=== PATIENT | male | born 1960 | race Two or more races ===

== ENCOUNTER 2017-04-20 12:20 | Emergency (ER) | payer MEDICAID, SELFPAY ==
[~2017-04-20] VITALS: Ht 167.6 cm; Wt 89.4 kg
[~2017-04-20 12:20] MED LIST: LEVAQUIN500 MG ORAL; PEPCID40 MG PO
[2017-04-20] MEDS ORDERED: NKM (12:31)
[2017-04-20 12:32] VITALS: BP 146/85
[2017-04-20 13:16] LABS: BASOPHILS % (AUTO) 1.4 % (0.0-2.0); EOSINOPHILS % (AUTO) 0.2 % (0.0-3.0); HEMATOCRIT 47.8 % (42.0-52.0); HEMOGLOBIN 16.3 G/DL (14.2-18.0); LYMPHOCYTES % (AUTO) 20.4 % (20.0-45.0); MEAN CORPUSCULAR VOLUME 92 FL (80-99); MONOCYTES % (AUTO) 3.9 % (1.0-10.0); NEUTROPHILS % (AUTO) 74.1 % (45.0-75.0); PLATELET COUNT 233 K/UL (150-450); RED CELL DISTRIBUTION WIDTH 10.5 % (11.6-14.8); WHITE BLOOD COUNT 7.4 K/UL (4.8-10.8)
[2017-04-20 13:19] LABS: ALANINE AMINOTRANSFERASE 33 U/L (12-78); ALBUMIN/GLOBULIN RATIO 1.1 (1.0-2.7); ALKALINE PHOSPHATASE 103 U/L (46-116); ANION GAP 20 mmol/L (5-15); ASPARTATE AMINO TRANSFERASE 9 U/L (15-37); BILIRUBIN,TOTAL 0.6 MG/DL (0.2-1.0); BLOOD UREA NITROGEN 18 mg/dL (7-18); CARBON DIOXIDE 16 MMOL/L (21-32); CHLORIDE 96 MMOL/L (98-107); CREATININE 1.5 MG/DL (0.55-1.30); POTASSIUM 4.1 MMOL/L (3.5-5.1); SODIUM 132 MMOL/L (136-145)
--- NOTE | 2017-04-20 14:24 | Emergency Room Report ---
History of Present Illness General Chief Complaint: Generalized Weakness Source: Patient (TRISTIAN ASHBY M.D.) Present Illness HPI 56-year-old male presents ED complaining of feeling weak x2 weeks. States he has a dry mouth. States he is urinating a lot. Accu-Chek greater than 400. Patient states he was unaware he is a diabetic. Denies any fevers or chills. Denies nausea or vomiting. Denies chest pain or shortness of breath. No other aggravating relieving factors. Denies any other associated symptoms (TRISTIAN ASHBY M.D.) Allergies: Coded Allergies: No Known Allergies (Unverified , 09/13/13) Patient History Past Medical History: none Past Surgical History: none Pertinent Family History: none Social History: Denies: smoking, alcohol use, drug use Immunizations: UTD Reviewed Nursing Documentation: PMH: Agreed, PSxH: Agreed (TRISTIAN ASHBY M.D.) Nursing Documentation-PMH Past Medical History: No History, Except For Hx Hypertension: Yes (TRISTIAN ASHBY M.D.) Review of Systems All Other Systems: negative except mentioned in HPI (TRISTIAN ASHBY M.D.) Physical Exam Vital Signs Date Time Temp Pulse Resp B/P (MAP) Pulse Ox O2 Delivery O2 Flow Rate FiO2 04/20/17 12:22 97.9 99 18 180/104 96 Room Air Sp02 EP Interpretation: reviewed, normal General Appearance: no apparent distress, alert, GCS 15, non-toxic Head: normocephalic, atraumatic Eyes: bilateral eye normal inspection, bilateral eye PERRL ENT: hearing grossly normal, normal pharynx, no angioedema, normal voice Neck: full range of motion, supple/symm/no masses Respiratory: chest non-tender, lungs clear, normal breath sounds, speaking full sentences Cardiovascular #1: regular rate, rhythm, no edema Cardiovascular #2: 2+ carotid (R), 2+ carotid (L), 2+ radial (R), 2+ radial (L) , 2+ dorsalis pedis (R), 2+ dorsalis pedis (L) Gastrointestinal: normal bowel sounds, non tender, soft, non-distended, no guarding, no rebound Rectal: deferred Genitourinary: normal inspection, no CVA tenderness Musculoskeletal: back normal, gait/station normal, normal range of motion, non- tender Neurologic: alert, oriented x3, responsive, motor strength/tone normal, sensory intact, speech normal Psychiatric: judgement/insight normal, memory normal, mood/affect normal, no suicidal/homicidal ideation Reflexes: 3+ bicep (R), 3+ bicep (L), 3+ tricep (R), 3+ tricep (L), 3+ knee (R) , 3+ knee (L) Skin: normal color, no rash, warm/dry, well hydrated Lymphatic: no adenopathy (TRISTIAN ASHBY M.D.) Medical Decision Making Diagnostic Impression: Primary Impression: Hyperglycemia Additional Impression: Diabetes mellitus, new onset ER Course Received signout from Dr Ashby Repeat CMP after fluid, insulin show improved AG and bicarb SerumCr also improved, likely GEOVANNA from dehydration/polyuria ABG does NOT show acidosis Doubt DKA Patient is asymptomatic Will start on Metformin Close PMD followup (CARLOS PORTER M.D.) Last Vital Signs Date Time Temp Pulse Resp B/P (MAP) Pulse Ox O2 Delivery O2 Flow Rate FiO2 04/20/17 12:32 98.8 91 25 146/85 98 Room Air (TRISTIAN ASHBY M.D.) Status: improved (CARLOS PORTER M.D.) Disposition: HOME, SELF-CARE Referrals: [facility]ERR[facility] (PCP) TRISTIAN ASHBY M.D. Apr 20, 2017 14:24 CARLOS PORTER M.D. Apr 20, 2017 16:18
[2017-04-20 15:00] VITALS: BP 133/87
[2017-04-20 15:52] LABS: ALANINE AMINOTRANSFERASE 26 U/L (12-78); ALBUMIN 3.3 G/DL (3.4-5.0); ALKALINE PHOSPHATASE 83 U/L (46-116); ANION GAP 16 mmol/L (5-15); ASPARTATE AMINO TRANSFERASE 6 U/L (15-37); BILIRUBIN,TOTAL 0.5 MG/DL (0.2-1.0); BLOOD UREA NITROGEN 15 mg/dL (7-18); CARBON DIOXIDE 18 MMOL/L (21-32); CHLORIDE 106 MMOL/L (98-107); CREATININE 1.1 MG/DL (0.55-1.30); POTASSIUM 3.8 MMOL/L (3.5-5.1); SODIUM 140 MMOL/L (136-145)
[2017-04-20] MEDS ORDERED: METFORMIN HCL500 M1 ORAL (16:19)
[2017-04-20 16:30] VITALS: BP 133/87
== END 2017-04-20 16:34 | disposition home or self-care (01) ==
LOC: EMR 12:57
DX: E11.65 Type 2 diabetes mellitus with hyperglycemia (principal); I10 Essential (primary) hypertension; R53.1 Weakness
CPT/HCPCS: 36415; 36600; 80053; 82009; 82803; 82962; 83735; 85025; 96361; 96374; 99284; J1815

== ENCOUNTER 2017-05-18 03:40 | Emergency (ER) | payer MEDICAID ==
[~2017-05-18] VITALS: Ht 162.6 cm; Wt 77.1 kg
[~2017-05-18 03:40] MED LIST changes: +METFORMIN HCL500 M1 ORAL; +NKM
[2017-05-18] MEDS ORDERED: GLIPIZIDE5 MG ORAL (03:52)
[2017-05-18] MEDS ORDERED: Aspirin Baby 81mg ORAL ONE (04:00)
[2017-05-18] MEDS ORDERED: Nitroglycerin Subl 0.4mg tab SL PRN (04:00)
[2017-05-18] MEDS ORDERED: Heparin 5000 units/ml inj IV ONE (04:00)
[2017-05-18 04:13] LABS: BASOPHILS % (AUTO) 1.3 % (0.0-2.0); EOSINOPHILS % (AUTO) 1.7 % (0.0-3.0); LYMPHOCYTES % (AUTO) 40.5 % (20.0-45.0); MEAN CORPUSCULAR HEMOGLOBIN 31.2 PG (27.0-31.0); MEAN CORPUSCULAR HGB CONC 33.9 G/DL (32.0-36.0); MEAN CORPUSCULAR VOLUME 92 FL (80-99); MEAN PLATELET VOLUME 8.9 FL (6.5-10.1); MONOCYTES % (AUTO) 7.3 % (1.0-10.0); NEUTROPHILS % (AUTO) 49.1 % (45.0-75.0); PLATELET COUNT 282 K/UL (150-450); RED BLOOD COUNT 4.99 M/UL (4.70-6.10); RED CELL DISTRIBUTION WIDTH 10.8 % (11.6-14.8); WHITE BLOOD COUNT 8.7 K/UL (4.8-10.8)
[2017-05-18] MEDS ORDERED: Heparin 25,000u/D5W 500ml 500 ML IV SCH (04:15)
[2017-05-18] MEDS ORDERED: Morphine Sulfate 4mg/ml Inj IVP ONE ×2 (04:15→04:30)
--- NOTE | 2017-05-18 04:16 | Emergency Room Report ---
History of Present Illness General Chief Complaint: Chest Pain Source: Patient Present Illness HPI This is a 56-year-old male with history of diabetes. He woke up with severe chest pain to the mid sternal area. Radiating to his neck. This occurred about 30 minutes prior to arrival. Pain is 10 out of 10. Was diaphoretic and shortness of breath. Also with one episode of nausea and vomiting. Nothing made it better. Exertion made it worse. Allergies: Coded Allergies: No Known Allergies (Unverified , 09/13/13) Patient History Past Medical History: see triage record, old chart reviewed, DM Past Surgical History: none Pertinent Family History: none Social History: Denies: smoking Immunizations: other Reviewed Nursing Documentation: PMH: Agreed, PSxH: Agreed Nursing Documentation-PMH Past Medical History: No History, Except For Hx Hypertension: Yes Hx Diabetes: Yes Review of Systems Eye: Denies: eye pain, blurred vision ENT: Denies: ear pain, nose congestion, throat swelling Respiratory: Denies: cough, shortness of breath Cardiovascular: Reports: chest pain, Denies: palpitations Gastrointestinal: Denies: abdominal pain, diarrhea, nausea, vomiting Musculoskeletal: Denies: back pain, joint pain Skin: Denies: rash Neurological: Denies: headache, numbness Endocrine: Denies: increased thirst, increased urine Hematologic/Lymphatic: Denies: easy bruising All Other Systems: negative except mentioned in HPI Physical Exam Vital Signs Date Time Temp Pulse Resp B/P (MAP) Pulse Ox O2 Delivery O2 Flow Rate FiO2 05/18/17 03:48 97.0 83 24 182/103 100 Room Air vitals with hypertension Sp02 EP Interpretation: reviewed, normal General Appearance: well appearing, alert, moderate distress Head: normocephalic, atraumatic Eyes: bilateral eye PERRL, bilateral eye EOMI ENT: hearing grossly normal, normal pharynx Neck: full range of motion, supple, no meningismus Respiratory: chest non-tender, lungs clear, normal breath sounds Cardiovascular #1: regular rate, rhythm, no murmur Gastrointestinal: normal bowel sounds, non tender, no mass, no organomegaly, no bruit, non-distended Musculoskeletal: back normal, gait/station normal, normal range of motion Neurologic: alert, oriented x3 Psychiatric: mood/affect normal Skin: diaphoresis Procedures Critical Care Time Critical Care Time Critical care is mandated in this patient who presented with acute AR. Patient require my urgent intervention to attenuate the risks of metabolic collapse which may lead to cardiovascular collapse and . Critical care time is 35 minutes excluding any reportable procedure. Critical care time included evaluation, multiple reevaluation, looking at old charts, interpreting laboratory and diagnostic data, discussing case with patient and family and consultants, and charting. Medical Decision Making Diagnostic Impression: Primary Impression: Myocardial infarction acute Qualified Codes: I21.3 - ST elevation (STEMI) myocardial infarction of unspecified site ER Course Patient presents with acute inferior wall AR. He received aspirin, nitroglycerin, heparin bolus and heparin drip. I discussed the case with Dr. Vidales at [facility]. He accepted patient for transfer. Told me to hold off Plavix load. Wanted Integrilin but we do not have any here. Will not hold transport. EKG Diagnostic Results Rate: normal Rhythm: NSR ST Segments: other - ST elevation anteriorly ASA given to the pt in ED: Yes Rhythm Strip Diag. Results Rhythm Strip Time: 04:15 EP Interpretation: yes Rate: 53 Rhythm: NSR Chest X-Ray Diagnostic Results Chest X-Ray Diagnostic Results : Chest X-Ray Ordered: Yes # of Views/Limited/Complete: 1 View Indication: Chest Pain EP Interpretation: Yes Interpretation: no consolidation, no effusion, no pneumothorax, no acute cardiopulmonary disease Impression: No acute disease Last Vital Signs Date Time Temp Pulse Resp B/P (MAP) Pulse Ox O2 Delivery O2 Flow Rate FiO2 05/18/17 04:01 83 24 Room Air 05/18/17 03:53 182/103 05/18/17 03:48 97.0 100 Status: improved Disposition: XFER SHT-[facility]M HOSP Condition: Critical Referrals: [facility] (PCP) STEFANIE ODELL M.D. May 18, 2017 04:16
[2017-05-18 04:24] LABS: ANION GAP 9 mmol/L (5-15); CALCIUM 8.9 MG/DL (8.5-10.1); CARBON DIOXIDE 25 MMOL/L (21-32); CHLORIDE 104 MMOL/L (98-107); CREATININE 1.1 MG/DL (0.55-1.30); GLOMERULAR FILTRATION RATE > 60 mL/min (>60); POTASSIUM 3.4 MMOL/L (3.5-5.1); SODIUM 138 MMOL/L (136-145)
[2017-05-18 04:27] LABS: APPEARANCE,URINE CLEAR; KETONES,URINE NEGATIVE (NEGATIVE); LEUKOCYTE ESTERASE ,URINE NEGATIVE (NEGATIVE); NITRITE,URINE NEGATIVE (NEGATIVE); PH,URINE 6 (4.5-8.0); PROTEIN,URINE NEGATIVE (NEGATIVE); UROBILINOGEN,URINE NORMAL MG/DL (0.0-1.0)
[2017-05-18 04:30] VITALS: BP 152/84
[2017-05-18] MEDS ORDERED: Nitroglycerin 50mg/250ml btl 250 ML IV SCH (04:30)
[2017-05-18 04:38] LABS: ALANINE AMINOTRANSFERASE 26 U/L (12-78); ASPARTATE AMINO TRANSFERASE 8 U/L (15-37); CKMB 0.7 NG/ML (0.0-3.6); TOTAL PROTEIN 7.5 G/DL (6.4-8.2)
[2017-05-18 05:31] VITALS: BP 152/84
--- NOTE | 2017-05-18 14:40 | Diagnostic Imaging Report ---
Indication: Chest pain Technique: One view of the chest Comparison: 09/13/2013 Findings: The lungs and pleural spaces are clear. Heart size is normal. Findings are unchanged Impression: No acute process
--- NOTE | 2017-05-18 18:28 | Cardiology Report ---
APPROVED REPORT EKG Measurement Heart [id number] Normal sinus rhythm ST elevation, consider inferior injury or acute infarct Consider right ventricular involvement in acute inferior infarct Abnormal ECG
== END 2017-05-18 04:30 | disposition short-term general hospital (02) ==
LOC: EMR 03:53
DX: I21.19 ST elevation (STEMI) myocardial infarction involving other coronary artery of inferior wall (principal); I10 Essential (primary) hypertension; E11.9 Type 2 diabetes mellitus without complications
CPT/HCPCS: 36415; 71010; 80053; 80307; 81003; 82550; 82553; 83880; 84484; 85025; 85610; 85730; 93005; 96361; 96365; 96375; 99291; J1644; J2270